=== PATIENT | male | born 1965 | race Caucasian/White ===

== ENCOUNTER → 2020-05-30 | Outpatient (CLI) | payer BC | END | disposition home or self-care (01) | LOC: LABPAT 15:39 | PROVIDERS: ATTEND Surgery | DX: U07.1 COVID-19 (principal) ==

== ENCOUNTER 2020-06-03 07:09 | Day surgery (SDC) | payer BC ==
[~2020-06-03 07:09] MED LIST: LACTATED RINGERS 1,000 ML IV SCH
[2020-06-03 07:36] VITALS: RESP 16; TEMP 97.8
[2020-06-03] MEDS ORDERED: fentaNYL (PF) 50 MCG/ML 2 ML AMP ONE (08:20)
[2020-06-03] MEDS ORDERED: LIDOCAINE 1% INJ 10MG/ML (20 ML MDV) ONE (08:20)
[2020-06-03] MEDS ORDERED: PROPOFOL 10 MG/ML 20 ML VIAL IV ONE (08:20)
--- NOTE | 2020-06-03 08:22 | P.GSHP ---
History of Present Illness H&P Date: 06/03/20 55-year-old male presents today for upper and lower endoscopy. He states that he has heartburn and reflux issues that have worsened over the past few years. He states that spicy foods and some solid foods he feels as if the ileus that his throat. He denies any nausea or vomiting. He occasionally takes Nexium for this issue. Patient also presents for a lower endoscopy. He has never had a screening colonoscopy previously. He denies any changes in bowel function. He denies any blood in his stool. He is unsure of any family history of colon cancer. - Review of Systems All systems: negative Past Medical History Past Medical History: GERD/Reflux, Skin Disorder Additional Past Medical History / Comment(s): SCORIATIC ARTHRITIS. PSORIASIS History of Any Multi-Drug Resistant Organisms: None Reported Additional Past Surgical History / Comment(s): LIPOMA FROM UPPER LEFT ARM (OFFICE). REMOVED ONE KIDNEY FROM HOCKEY INJURY. OPEN SURGERY ON RIGHT KNEE. Past Anesthesia/Blood Transfusion Reactions: Unable to Obtain, Motion Sickness Past Psychological History: No Psychological Hx Reported Smoking Status: Former smoker Past Alcohol Use History: None Reported Additional Past Alcohol Use History / Comment(s): QUIT ABOUT 20 YEARS AGO. Past Drug Use History: None Reported Medications and Allergies Home Medications Medication Instructions Recorded Confirmed Type Calcium Carbonate [Tums] 1 - 2 tab PO TID PRN 06/02/20 06/03/20 History Esomeprazole Magnesium [NexIUM] 20 mg PO HS 06/02/20 06/03/20 History Ibuprofen [Advil] 200 - 400 mg PO Q6H PRN 06/02/20 06/03/20 History Allergies Allergy/AdvReac Type Severity Reaction Status Date / Time No Known Allergies Allergy Verified 06/03/20 07:30 Surgical - Exam Osteopathic Statement: *. No significant issues noted on an osteopathic structural exam other than those noted in the History and Physical/Consult. Vital Signs Temp Pulse Resp BP Pulse Ox 97.8 F 109 H 16 154/95 92 L 06/03/20 07:33 06/03/20 07:33 06/03/20 07:33 06/03/20 07:33 06/03/20 07:33 - General well nourished, no distress - Eyes PERRL - ENT normal mucosa - Neck trachea midline - Respiratory normal respiratory effort - Abdomen Abdomen: soft, non tender - Integumentary no rash, no growths - Neurologic normal coordination, normal sensation - Psychiatric oriented to time, oriented to person, oriented to place Assessment and Plan Plan: 55-year-old presents with symptoms of reflux and for screening colonoscopy. Plan is for upper and lower endoscopy. Risks, benefits and alternatives were provided to the patient. Further recommendations after procedure.
--- NOTE | 2020-06-03 08:44 | P.PCN ---
Date of Procedure: 06/03/20 Preoperative Diagnosis: GERD Screening for colon cancer Postoperative Diagnosis: Gastritis Duodenitis Hiatal hernia Colon polyps of the ascending colon Diverticulosis Procedure(s) Performed: EGD with biopsy Colonoscopy with hot snare polypectomy Surgeon: Kenya Slater Pathology: other (Biopsies of esophagus, antrum, duodenum, ascending colon polyp 2) Condition: stable Disposition: same day Indications for Procedure: 55-year-old male presents today for upper and lower endoscopy. He is noted to have a history of reflux for which he occasionally takes Nexium. This reflux has worsened recently. He also has never had a screening colonoscopy. Risks benefits and alternatives were provided to the patient and patient did provide consent prior to attending the endoscopy suite. Operative Findings: Gastritis Duodenitis Hiatal hernia Colon polyps of the ascending colon Diverticulosis Description of Procedure: The patient was brought into the endoscopy suite and placed in left lateral decubitus position and adequate sedation was achieved using conscious sedation. A bite block was placed and an endoscope was placed in the oropharynx and advanced under endoscopic visualization. The endoscope was advanced through the esophagus into the stomach, through the gastric antrum and into the pylorus. The third portion of the duodenum was visualized. The endoscope was then slowly withdrawn. The first portion the duodenum was noted to have mild inflammatory changes. Biopsies were taken. The antrum was noted to have mild inflammatory changes. Biopsies were taken. The gastric body distended normally and the gastric folds appeared normal and flattened with insufflation. A retroflexed view of the fundus and GE junction revealed a mild sized hiatal hernia. The esophagus appeared endoscopically normal. Biopsies were taken. Excess air was removed and the scope was withdrawn. A digital rectal exam was performed and mild internal hemorrhoids were palpated. An endoscope was then placed in the rectum and advanced to the cecum as identified by landmarks including the appendiceal orifice and the ileocecal valve. The prep was good. The colonoscope was then slowly withdrawn, examining for any mucosal abnormality's. The cecum, ascending, transverse, descending and sigmoid colon were visualized adequately. 2 polyps were noted in the ascending colon. Both were noted to be pedunculated and small in size. One was in the mid ascending colon and the second was in the distal ascending colon. Both were removed with hot snare polypectomy. Hemostasis was maintained. Meticulous this was noted scattered throughout the colon. Retroflexion was performed in the rectum and mild internal hemorrhoids were visible. Excess air was removed, the colonoscope withdrawn and the procedure terminated. The patient was then transferred to the recovery unit in stable condition. Repeat colonoscopy should be performed in 5 years.
[2020-06-03 09:09] VITALS: BP 148/85; PULSE 74
== END 2020-06-03 09:25 | disposition home or self-care (01) ==
LOC: ORWHC2ENDO 07:09
PROVIDERS: ATTEND Surgery
DX: Z12.11 Encounter for screening for malignant neoplasm of colon (principal); D12.2 Benign neoplasm of ascending colon; K29.80 Duodenitis without bleeding; K44.9 Diaphragmatic hernia without obstruction or gangrene; K64.8 Other hemorrhoids; K29.50 Unspecified chronic gastritis without bleeding; K20.0 Eosinophilic esophagitis; L40.50 Arthropathic psoriasis, unspecified; L40.9 Psoriasis, unspecified; Z90.5 Acquired absence of kidney; Z98.890 Other specified postprocedural states; Z87.891 Personal history of nicotine dependence; Z79.899 Other long term (current) drug therapy; Z79.1 Long term (current) use of non-steroidal anti-inflammatories (NSAID)
CPT/HCPCS: 88305; 45385; 43239; J2001; J3010; J2704